=== PATIENT | female | born 1960 | race Caucasian/White ===

== ENCOUNTER 2022-02-25 08:10 | Day surgery (SDC) | payer OTHER ==
[2022-02-25] MEDS ORDERED: Lactated Ringers 1,000 ML IV SCH (09:15)
[2022-02-25] MEDS ORDERED: Propofol 200 MG/20 ML SDV ONE ×2 (10:08→10:34)
[2022-02-25] MEDS ORDERED: Midazolam 1 MG/ML 2 ML SDV ONE (10:08)
== END 2022-02-25 11:45 | disposition home or self-care (01) ==
LOC: JP.SDS 08:10
PROVIDERS: ATTEND Student in an Organized Health Care Education/Training Program
DX: Z12.11 Encounter for screening for malignant neoplasm of colon (principal); K63.5 Polyp of colon; I10 Essential (primary) hypertension; K21.9 Gastro-esophageal reflux disease without esophagitis; E66.9 Obesity, unspecified; Z68.41 Body mass index [BMI] 40.0-44.9, adult; Z88.0 Allergy status to penicillin; Z88.2 Allergy status to sulfonamides; Z79.899 Other long term (current) drug therapy
CPT/HCPCS: 45385; 88305; J2250; J2704; J7120

== ENCOUNTER 2023-07-21 06:17 | Day surgery (SDC) | payer OTHER ==
[2023-07-21] MEDS: Lactated Ringers 1,000 ML IV SCH (07:07)
[2023-07-21] MEDS ORDERED: Propofol 200 MG/20 ML SDV ONE ×2 (07:30→10:03)
[2023-07-21] MEDS ORDERED: fentaNYL 50 MCG/ML SDV ONE (07:31)
[2023-07-21] MEDS ORDERED: Midazolam 1 MG/ML 2 ML SDV ONE (07:31)
[2023-07-21 08:32] LABS: BASOPHILS ABSOLUTE AUTO 0.07 K/uL (0.00-0.10); BASOPHILS PERCENT AUTO 0.8 % (0.1-1.3); EOSINOPHILS ABSOLUTE AUTO 0.12 K/uL (0.00-0.40); EOSINOPHILS PERCENT AUTO 1.4 % (0.0-5.4); HEMATOCRIT 29.8 % (34.3-46.0); IMMATURE GRAN ABSOLUTE AUTO 0.07 K/uL (0.00-0.23); IMMATURE GRAN PERCENT AUTO 0.8 % (0.0-0.7); LYMPHOCYTES ABSOLUTE AUTO 0.76 K/uL (0.8-3.3); LYMPHOCYTES PERCENT AUTO 8.9 % (11.4-47.7); MEAN CORPUSCULAR HEMOGLOBIN 21.9 pg (31.6-35.5); MEAN CORPUSCULAR HGB CONC 30.2 g/dL (31.6-35.5); MEAN CORPUSCULAR VOLUME 72.5 fL (81.4-99.0); MONOCYTES ABSOLUTE AUTO 0.71 K/uL (0.20-0.90); MONOCYTES PERCENT AUTO 8.3 % (3.3-12.6); NEUTROPHILS ABSOLUTE AUTO 6.83 K/uL (1.0-7.6); NEUTROPHILS PERCENT AUTO 79.8 % (40.0-78.1); PLATELET COUNT,PLT 292 K/uL (130-375); RED BLOOD CELL COUNT 4.11 M/uL (3.77-5.24); WHITE BLOOD CELL COUNT,WBC 8.6 K/uL (3.2-11.0)
[2023-07-21 08:52] LABS: ALANINE AMINOTRANSFERASE,ALT 20 U/L (12-78); ALBUMIN 3.2 g/dL (3.4-5.0); ALKALINE PHOSPHATASE 78 U/L (46-116); ANION GAP 6.8 mmol/L (5.0-14.0); ASPARTATE AMNIOTRANSFERASE,AST 17 U/L (15-37); BILIRUBIN TOTAL 0.4 mg/dL (0.2-1.0); BLOOD UREA NITROGEN,BUN 24 mg/dL (7-18); CALCIUM 9.1 mg/dL (8.5-10.1); CARBON DIOXIDE,CO2 28 mmol/L (21-32); CHLORIDE,CL 106 mmol/L (100-108); CREATININE 0.8 mg/dL (0.6-1.0); EST CRCL DRUG DOSING (CG) 56.19 mL/min; ESTIMATED GFR 82 mL/min (>60); GLUCOSE RANDOM 113 mg/dL (74-106); POTASSIUM,K 4.3 mmol/L (3.6-5.2); PROTEIN TOTAL,TP 6.3 g/dL (6.4-8.2); SODIUM,NA 141 mmol/L (140-148)
[2023-07-21 08:54] LABS: MAGNESIUM 1.9 mg/dL (1.8-2.4); PHOSPHORUS 4.6 mg/dL (2.5-4.9)
== END 2023-07-21 11:07 | disposition home or self-care (01) ==
LOC: JP.SDS 06:17
PROVIDERS: ATTEND Student in an Organized Health Care Education/Training Program
DX: K29.50 Unspecified chronic gastritis without bleeding (principal); K44.9 Diaphragmatic hernia without obstruction or gangrene; K21.9 Gastro-esophageal reflux disease without esophagitis; D62 Acute posthemorrhagic anemia; I10 Essential (primary) hypertension; Z88.0 Allergy status to penicillin; Z88.2 Allergy status to sulfonamides
CPT/HCPCS: 36415; 43239; 80053; 83735; 84100; 85025; 93005; J2250; J2704; J3010; J7120; 88305; 88342; 93010

== ENCOUNTER 2023-11-15 20:13 | Emergency (ER) | payer MEDICARE, OTHER | END 2023-11-15 22:00 | disposition home or self-care (01) | LOC: JP.ED 20:13 | DX: S99.912A Unspecified injury of left ankle, initial encounter (principal); I10 Essential (primary) hypertension; K21.9 Gastro-esophageal reflux disease without esophagitis; E66.9 Obesity, unspecified; Z79.899 Other long term (current) drug therapy; Z88.0 Allergy status to penicillin; Z88.2 Allergy status to sulfonamides; X58.XXXA Exposure to other specified factors, initial encounter | CPT/HCPCS: 73610-26-LT; 73610-LT; 99283 ==

== ENCOUNTER 2024-07-30 06:35 | Day surgery (SDC) | payer MEDICARE ==
[2024-07-30] MEDS ORDERED: Midazolam 1 MG/ML 2 ML SDV ONE (06:55)
[2024-07-30] MEDS ORDERED: fentaNYL 50 MCG/ML SDV ONE (06:55)
[2024-07-30] MEDS ORDERED: Propofol 200 MG/20 ML SDV ONE (06:55)
[2024-07-30] MEDS: Lactated Ringers 1,000 ML IV SCH (07:27)
== END 2024-07-30 09:55 | disposition home or self-care (01) ==
LOC: JP.SDS 06:35
PROVIDERS: ATTEND Surgery
DX: D64.9 Anemia, unspecified (principal); I10 Essential (primary) hypertension; K22.89 Other specified disease of esophagus
CPT/HCPCS: 00813-QZ; 88305; J2250; J2704; J3010; J7120